=== PATIENT | male | born 1980 | race Caucasian/White ===

== ENCOUNTER 2017-10-06 20:35 | Emergency (ER) | payer BC ==
--- NOTE | 2017-10-06 20:41 | UC ---
Skin Complaint HPI - HPI Summary HPI Summary: 37 yo male presents with bug bite to left anterior thigh that he first noticed 2 days ago. Since that time has had increasingly redness and warmth around the area. Unsure what type of bug it was. Denies fever, chills, or drainage. - History of Current Complaint Time Seen by Provider: 10/06/17 20:41 Stated Complaint: BUG BITE LEG Hx Obtained From: Patient Onset/Duration: Gradual Onset Current Severity: None - Allergy/Home Medications Allergies/Adverse Reactions: Allergies Allergy/AdvReac Type Severity Reaction Status Date / Time bioxin Allergy Shortness Uncoded 10/06/17 20:49 of Breath Home Medications: Home Medications Albuterol HFA INHALER* [Ventolin HFA Inhaler*] 10/06/17 [History] Review of Systems Constitutional: Negative Skin: Other - Bug bite left anterior thigh Respiratory: Negative Cardiovascular: Negative Neurovascular: Negative Neurological: Negative Psychological: Negative All Other Systems Reviewed And Are Negative: Yes PMH/Surg Hx/FS Hx/Imm Hx - Additional Past Medical History Additional PMH: Asthma Previously Healthy: Yes - Surgical History Surgical History: None - Family History Known Family History: Positive: None - Social History Occupation: Employed Full-time Lives: With Family Alcohol Use: Occasionally Substance Use Type: None Smoking Status (MU): Never Smoked Tobacco Physical Exam - Summary Physical Exam Summary: GENERAL: NAD. WDWN. No pain distress. SKIN: Left anterior thigh with central bug bite and surround 2.0cm of mild erythema with mild warmth. No open area, streaking, or drainage. NECK: Supple. Nontender. No lymphadenopathy. CHEST: No accessory muscle use. Breathing comfortably and in no distress. CV: Pulses intact NEURO: Alert. CN II-XII grossly intact. PSYCH: Age appropriate behavior. Triage Information Reviewed: Yes Vital Signs: Vital Signs: Temp Pulse Resp BP Pulse Ox 98.7 F 87 16 130/77 99 10/06/17 20:43 10/06/17 20:43 10/06/17 20:43 10/06/17 20:43 10/06/17 20:43 Course/Dx - Course Course Of Treatment: Bug bite with cellulitis left anterior thigh. Area was marked with marking pen. Rx for keflex and advised to ice the area. - Diagnoses Provider Diagnoses: Bug bite with cellulitis left anterior thigh Discharge - Sign-Out/Discharge Documenting (check all that apply): Patient Departure - Discharge Plan Condition: Stable Disposition: HOME Prescriptions: Cephalexin CAP* [Keflex CAP*] 500 mg PO BID #14 cap Patient Education Materials: Insect Bite or Sting (ED) Referrals: Jd Dick MD [Primary Care Provider] - Additional Instructions: If you develop a fever, shortness of breath, chest pain, new or worsening symptoms - please call your PCP or go to the ED. 1) If the redness extends beyond the boarders after being on the antibiotic for 2 or more days - please follow up - Billing Disposition and Condition Condition: STABLE Disposition: Home
[2017-10-06 20:49] VITALS: BP 130/77
[2017-10-06] MEDS ORDERED: Cephalexin CAP* 500 MG PO ONE (20:57)
== END 2017-10-06 21:45 | disposition home or self-care (01) ==
LOC: UCEAST 20:35
DX: S70.362A Insect bite (nonvenomous), left thigh, initial encounter (principal); L03.116 Cellulitis of left lower limb; W57.XXXA Bitten or stung by nonvenomous insect and other nonvenomous arthropods, initial encounter; Y93.9 Activity, unspecified; Y92.9 Unspecified place or not applicable; J45.909 Unspecified asthma, uncomplicated; Z88.8 Allergy status to other drugs, medicaments and biological substances
CPT/HCPCS: 99202; A9270-GY; G0463

== ENCOUNTER 2018-03-11 20:03 | Emergency (ER) | payer BC ==
--- NOTE | 2018-03-11 20:22 | UC ---
Throat Pain/Nasal Ronni HPI - HPI Summary HPI Summary: 38-year-old male comes in to clinic with a chief complaint of sore throat and swollen tonsils with exudates for one week. Ragley like he had some fevers last night things are getting worse rather than better. Swallowing makes the pain worse. Not swallowing minimize pain. No chest congestion. He does have some rhinorrhea but no sinus pressure. - History of Current Complaint Stated Complaint: SORE THROAT Time Seen by Provider: 03/11/18 20:05 - Allergies/Home Medications Allergies/Adverse Reactions: Allergies Allergy/AdvReac Type Severity Reaction Status Date / Time bioxin Allergy Shortness Uncoded 10/06/17 20:49 of Breath PMH/Surg Hx/FS Hx/Imm Hx Previously Healthy: Yes Respiratory History: Asthma - Surgical History Surgical History: None - Family History Known Family History: Positive: None - Social History Alcohol Use: Occasionally Substance Use Type: None Smoking Status (MU): Never Smoked Tobacco Review of Systems All Other Systems Reviewed And Are Negative: Yes Constitutional: Positive: Fever, Chills Skin: Positive: Negative Eyes: Positive: Negative ENT: Positive: Sore Throat, Nasal Discharge, Sinus Congestion Respiratory: Positive: Negative Cardiovascular: Positive: Negative Gastrointestinal: Positive: Negative Motor: Positive: Negative Neurovascular: Positive: Negative Musculoskeletal: Positive: Negative Neurological: Positive: Negative Psychological: Positive: Negative Is Patient Immunocompromised?: No Physical Exam Triage Information Reviewed: Yes Appearance: No Pain Distress, Well-Nourished, Ill-Appearing - MILD Vital Signs Reviewed: Yes Eye Exam: Normal Eyes: Positive: Conjunctiva Clear ENT: Positive: Pharyngeal erythema, Nasal congestion, Nasal drainage, TMs normal , Tonsillar swelling, Tonsillar exudate, Uvula midline - NO PERITONSILLAR ABSCESS ON EXAM Neck exam: Normal Neck: Positive: Supple Respiratory: Positive: Lungs clear, Normal breath sounds, No respiratory distress Cardiovascular: Positive: RRR Musculoskeletal Exam: Normal Musculoskeletal: Positive: Strength Intact, ROM Intact Neurological Exam: Normal Neurological: Positive: Alert, Muscle Tone Normal Psychological Exam: Normal Psychological: Positive: Age Appropriate Behavior Skin Exam: Normal Throat Pain/Nasal Course/Dx - Course Course Of Treatment: Strep test was negative strep. Patient will continue symptomatic treatment. We discussed that if his symptoms for past 10 days that' s an indication for an antibiotic. Patient prefers to not be on an antibiotic at this time. I let him know if he gets worse or continues to get reevaluated. - Differential Dx/Diagnosis Provider Diagnosis: Tonsillitis Discharge - Sign-Out/Discharge Documenting (check all that apply): Patient Departure All imaging exams completed and their final reports reviewed: No Studies - Discharge Plan Condition: Stable Disposition: HOME Patient Education Materials: Tonsillitis (ED) Referrals: Jd Dick MD [Primary Care Provider] - Additional Instructions: FOLLOW UP WITH YOUR DOCTOR IF NOT COMPLETELY IMPROVED. GET RECHECKED FOR ANY WORSENING OF YOUR CONDITION OR QUESTIONS OR CONCERNS. - Billing Disposition and Condition Condition: STABLE Disposition: Home
[2018-03-11 20:41] VITALS: BP 134/64
== END 2018-03-11 20:40 | disposition home or self-care (01) ==
LOC: UCEAST 20:03
DX: J03.90 Acute tonsillitis, unspecified (principal); Z88.1 Allergy status to other antibiotic agents
CPT/HCPCS: 87651; 99201; G0463